=== PATIENT | male | born 1990 | race Caucasian/White ===

== ENCOUNTER 2019-02-04 04:52 | Inpatient (IN) ==
[2019-02-04] MEDS ORDERED: traMADol 50 MG TABLET PO PRN (05:06)
[2019-02-04] MEDS ORDERED: Naloxone 0.4 MG/ML INJ IVP PRN (05:06)
[2019-02-04] MEDS ORDERED: Isovue-370 500 ML BOTTLE IVP ONE (05:24)
[2019-02-04 05:47] LABS: Basophils # 0.1 K/mcL (0.0-0.2); Basophils % 0.4 %; Eosinophils % 0.1 %; Hematocrit 32.9 % (37.5-50.1); Hemoglobin 10.3 g/dL (12.9-16.9); Immature Granulocytes % 0.6 % (0-4); Lymphocytes # 1.1 K/mcL (0.6-4.6); Lymphocytes % 9.5 %; Mean Corpuscular HGB Conc 31.3 g/dL (31.6-35.5); Mean Corpuscular Hemoglobin 25.4 pg (28.0-33.3); Mean Platelet Volume 9.7 fL (9.4-12.4); Monocytes # 0.7 K/mcL (0.0-1.3); Monocytes % 5.9 %; Neutrophils # 9.9 K/mcL (1.6-8.9); Platelet Count 319 K/mcL (140-400); Red Blood Count 4.06 M/mcL (4.19-5.50); Red Cell Distribution Width 14.6 % (11.5-14.5); Segmented Neutrophils % 83.5 %; White Blood Count 11.8 K/mcL (4.3-11.1)
[2019-02-04 05:54] LABS: INR 1.4; Prothrombin Time 15.7 Seconds (9.4-12.1)
[2019-02-04] MEDS: 0.9 % Sodium Chloride 1,000 ML IVC SCH ×2 (05:54→08:55)
[2019-02-04 05:56] LABS: Activated Partial Thrombo Time 36.4 Seconds (26.0-36.0)
[2019-02-04] MEDS: *HR* Heparin 5,000 UNIT/ML VIAL SQ SCH ×2 (05:56→16:25)
[2019-02-04 06:07] LABS: Alanine Aminotransferase 7 Units/L (7-52); Albumin 3.4 g/dL (3.5-5.7); Albumin/Globulin Ratio 0.9 (1.1-2.2); Alkaline Phosphatase 99 Units/L (34-104); Aspartate Amino Transferase 9 Units/L (13-39); BUN/Creatinine Ratio 21 (6-26); Bilirubin,Direct 0.1 mg/dL (0.0-0.2); Bilirubin,Indirect 0.2 mg/dL (0.0-1.2); Bilirubin,Total 0.3 mg/dL (0.3-1.0); Blood Urea Nitrogen 17 mg/dL (6-20); Calcium 8.3 mg/dL (8.6-10.3); Carbon Dioxide 22 mEq/L (23-29); Chloride 103 mEq/L (98-107); Globulin 3.7 g/dL (2.4-3.5); Glucose 128 mg/dL (70-105); Magnesium 1.7 mg/dL (1.6-2.6); Osmolality,Calculated 283 (280-300); Potassium 3.2 mEq/L (3.5-5.1); Sodium 135 mEq/L (136-145); Total Protein 7.1 g/dL (6.4-8.9); Troponin I < 0.03 ng/mL (< 0.04); eGFR For African Americans > 60 (> 60); eGFR For Non-African Americans > 60 (> 60)
[2019-02-04] MEDS ORDERED: Potassium Chloride Elixir 20 MEQ/15 ML UDC PO ONE (06:14)
--- NOTE | 2019-02-04 06:52 | Internal Med History&Physical ---
Date of Encounter: 02/04/19 Time of Encounter: 06:51 Internal Medicine - H&P: HPI Chief complaint: fever Admitted From: Home Plans for Post Hospital Care: Home History of present illness: Bryson Thomas is a 28 year old man with substance use disorder who reportedly had a bout of bacterial endocarditis 1 year ago complicated with pneumonic consolidations, treated at [facility] and subsequently discharged to a fpc for completion of his antibiotic therapy. He continues to use illicit intravenous drugs stating that his last use was about 5 or 6 days ago but in the last 2 days has been feeling feverish with heaviness in his chest and pain with deep breathing localizing it to the center of his chest. He complains of generalized body aches, fatigue, chills and subjective fever. He went to the emergency room at [facility] where he was reportedly febrile but and documentation seen to have had a temperature of 100.1 degrees. He was seen to have a leukocyte count of 13, elevated CRP at 12.4 and an initial lactate of 2.5. A reflex 3 hour repeat was 1.8. Chest x-ray revealed no acute anomalies and his EKG showed sinus tachycardia. Urine drug screen was positive for amphetamines although he tells me he only injects heroin. He was transferred to our facility because the patient wished to stay close but was denied admission at the referring hospital in case he needed an infectious disease consult. He was given a dose of vancomycin. On arrival here he is in no acute distress. Vitals: Reviewed General: Well-developed young man sitting up in bed in no acute distress. Skin: Warm and dry. Scabbed ulceration noted on the dorsal aspect of the right hand stemming from a recent abscess. HEENT: Moist mucous membranes. No conjunctivae pallor. Neck: No lymphadenopathy. No JVD. No carotid bruits. No palpable thyroid. Chest: Normal thoracic expansion. Normal breath sounds. Clear to auscultation. Heart: Normal S1 & S2; tachycardic. Slight murmur detected at the apex. Abdomen: Non-distended, soft and non-tender to palpation. No peritoneal reaction. Extremities: No clubbing, cyanosis or edema. No calf tenderness. Normal distal pulses. Neurological: Awake, alert and oriented to person, place and time. No focal deficits. Psych: Affect appropriate. Assessment/Plan 1. Fever: Not technically corroborated by healthcare staff. However given the associated constitutional signs and symptoms, leukocytosis, lactic acid elevation and being an IVDU, there is high concern for a bacteremic state and therefore this needs to be ruled out. Will get 2 sets of blood cultures here and will continue vancomycin empirically until proven otherwise. Will also have him undergo an echo evaluation given his prior history of infective endocarditis and concern for a current state of illness. 2. Chest pain: Non-specific. Will order a contrast-enhanced CT to rule out septic pulmonary emboli and pneumonic consolidations. 3. Malaise: While it may stem from an infectious process, a differential to consider is opiate withdrawal since he says he has not used in 6 days and the symptoms accompanied by abdominal cramping and diarrhea started in the last 48 hours. Will continue to monitor his clinical evolution. 4. Substance use disorder: 5 minutes were spent counseling and educating the patient on this habit. director dental services and resources were made available. Past Med Surg Social Fam HX - Past Medical History Medical history: IV drug use Additional medical history: Endocarditis - Past Surgical History Additional surgical history: Knee, ankle, shoulder surgery - Social History Smoking Status: Current every day smoker Packs per day: 2 Smokeless Tobacco Status: No Alcohol use: none Drug use: IV Drug Use Internal Medicine - H&P: Meds Allergy/AdvReac Type Severity Reaction Status Date / Time No Known Allergies Allergy Verified 02/04/19 05:42 All Systems PM: A 10-system review of systems was performed and is negative for pertinent findings except as documented above in the HPI. Family history reviewed and found non-contributory. - Constitutional Vitals: Temp Pulse Resp BP Pulse Ox 99.2 F 105 16 123/74 98 02/04/19 05:24 02/04/19 05:24 02/04/19 05:24 02/04/19 05:24 02/04/19 05:24 Exam: . Internal Med - H&P Results - Labs CBC & Chem 7: 02/04/19 05:29 02/04/19 05:29 Labs: Short CBC 02/04/19 Range/Units 05:29 WBC 11.8 H (4.3-11.1) K/mcL Hgb 10.3 L (12.9-16.9) g/dL Hct 32.9 L (37.5-50.1) % Plt Count 319 (140-400) K/mcL Neutrophils # 9.9 H (1.6-8.9) K/mcL BMP 02/04/19 05:29 Sodium 135 L Potassium 3.2 L Chloride 103 Carbon Dioxide 22 L BUN 17 Creatinine 0.82 Glucose 128 H Calcium 8.3 L Cardiac Enzymes 02/04/19 Range/Units 05:29 Troponin I < 0.03 (< 0.04) ng/mL Liver Function 02/04/19 Range/Units 05:29 Total Bilirubin 0.3 (0.3-1.0) mg/dL Direct Bilirubin 0.1 (0.0-0.2) mg/dL AST 9 L (13-39) Units/L ALT 7 (7-52) Units/L Alkaline Phosphatase 99 (34-104) Units/L Albumin 3.4 L (3.5-5.7) g/dL - Time Spent With Patient Total time spent is greater than 50% in coordination of care (as documented) at patient's floor/unit and/or counseling patient:
[2019-02-04] MEDS ORDERED: Vancomycin 0 MG in 0.9 % Sodium Chloride 250 ML IVPB SCH (09:00)
[2019-02-04] MEDS ORDERED: cefTRIAXone 2,000 MG in Water for inj. (sterile) 20 ML IVP SCH (10:00)
--- NOTE | 2019-02-04 11:59 | Infectious Disease Consult ---
Infectious Disease-Consult - Encounter Date/Time Date of Encounter: 02/04/19 Time of Encounter: 11:55 - Data of Consult Patient: new to practice Reason for consult: "TR endocarditis, positive blood cultures from outside hosp gm+ cocci, Hx IVDU" Consult date: 02/04/19 Requesting Physician: Marta Celaya MD Primary Care Provider: PCP NONE - HPI HPI: Mr. Thomas is a 28-year-old male with past medical history of hepatitis C, polysubstance abuse, and endocarditis. The patient was admitted to the hospital 02/04/19 for fever. We are consulted 02/04/19 for further workup and treatment recommendations for endocarditis and bacteremia. Briefly, the patient is a 28 year old male with a past medical history as stated above. The patient presented to [facility] with complaints of fevers, chest pain, and shortness of breath. Upon arrival to the ER, he had a low-grade temp and was tachycardic. Leukocytosis and lactic acidosis. Blood cultures were obtained 2 sets. Chest x-ray that was negative. His urine drug screen was positive for amphetamines. He was started on IV vancomycin and transferred here for further evaluation. Since admission, the patient has had some tachycardia and low-grade fevers. His leukocytosis is improved. Blood cultures drawn at [facility] are +2 out of 2 sets for gram-positive cocci. He did transthoracic echocardiogram that showed an EF of 60-65% with an oscillating mobile echodensity measuring 1.2 cm x 0.35 cm on the septal leaflet of the tricuspid valve consistent with a vegetation with mild tricuspid regurgitation. Trivial pericardial effusion. He is CTA of the chest that showed no evidence of pulmonary embolism or acute aortic disease. There are multiple pulmonary nodules which have an inflammatory appearance likely related to septic emboli. A partly cavitated mass seen in the right upper lobe measuring 3.1 x 3.2 cm were also noted. Labs today reveal an improved white blood cell count. His lactic acid and LFTs are normal. Troponin was negative. Kidney function is normal. Repeat blood cultures drawn 02/04/19 are pending 2 sets. Currently, he is on vancomycin and Rocephin. We have asked to evaluate and make further recommendations. During my exam today, the patient endorsed a history as stated above. He states for the past 2 days he has had substernal reproducible chest pain, shortness of breath, and cough. He endorses a history of fevers with a MAXIMUM TEMPERATURE of 104 at home. He states he feels generally unwell with fatigue and malaise. Denies any chills or rigors. Reports a diffuse headache at this time, but denies any blurred vision or neck stiffness. He denies nausea, vomiting, or constipation. Reports diarrhea has been ongoing for a couple of days. Denies abdominal pain or urinary complaints. Denies penile discharge or history of sexually transmitted diseases. Denies any back or flank pain. Denies any particular joint pain, redness, or swelling. Denies oral thrush or skin rashes. The patient lives at home with his family. He does not work outside the home. He smokes 2 packs of cigarettes per day. Reports every other day use of IV heroin. Denies chronic alcohol use. Denies recent travel. Reports that he has hepatitis C positive. - ROS Review of Systems: All systems reviewed and no additional remarkable complaints except as stated. - Results CBC & Chem 7: 02/06/19 09:25 02/06/19 09:25 - Exam Vitals: Temp Pulse Resp BP Pulse Ox 98.8 F 80 16 145/90 99 02/04/19 10:52 02/04/19 10:52 02/04/19 10:52 02/04/19 10:52 02/04/19 10:52 Exam: Head: Atraumatic, normal inspection, normocephalic. Eye: EOMI, PERRLA, no scleral icterus noted. No subconjunctival hemorrhage noted. ENT: Mucous membranes moist. No odontogenic infection noted. Neck: Normal inspection, no meningismus. Respiratory: Clear to auscultation. No rales, respiratory distress, rhonchi, or wheezes noted. Cardiovascular: Regular rate and rhythm, S1 and S2 audible. No murmurs, rubs, or gallops. GI: Soft, nondistended, normal bowel sounds. Nontender. Extremities:No joint swelling, pedal edema, or tenderness noted. Back: Normal inspection. No vertebral tenderness noted. Neurological: Alert, oriented 3, no focal deficits. Psychiatric: normal affect, normal mood. Skin: Dry, intact, warm. Normal color. No rashes. No endocarditis stigmata noted. No Known Home Drugs 02/04/19 [History] Allergy/AdvReac Type Severity Reaction Status Date / Time No Known Allergies Allergy Verified 02/04/19 08:58 - Assessment and Plan (1) Sepsis Current Visit: Yes Status: Acute The patient had 3 sepsis criteria with lactic acidosis on admission. Likely secondary to bacteremia and endocarditis. Improved. White blood cell count trending down. Tachycardia and lactic acidosis resolved. Afebrile overnight. Blood cultures drawn at outside hospital are +2 out of 2 sets for gram-positive cocci. Repeat blood cultures drawn 02/04/19 are pending 2 sets. Qualifiers: Sepsis type: sepsis due to unspecified organism Sepsis acute organ dysfunction status: with acute organ dysfunction Severe sepsis acute organ dysfunction type: unspecified Severe sepsis shock status: without septic shock Qualified Code(s): A41.9 - Sepsis, unspecified organism; R65.20 - Severe sepsis without septic shock SNOMED Code(s): 99389613 (2) Bacteremia Current Visit: Yes Status: Acute Causative organism: Unclear. Blood cultures from outside hospital are +2 sets for gram-positive cocci. Repeat blood cultures from 02/04/19 are pending 2 sets. Source: IV drug use. 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 No endocarditis stigmata noted on exam. Transthoracic echocardiogram shows a oscillating mobile echodensity on the tricuspid valve. The patient has 2 major and one minor modified Mcminn criteria. Currently on vancomycin and Rocephin. SNOMED Code(s): 1304440 (3) Endocarditis Current Visit: Yes Status: Acute Location: Tricuspid valve. Noted on the transthoracic echo. Blood cultures are positive, however, the patient does have a history of endocarditis so it is unclear if this is an old infection that is previously been treated for a new endocarditis. No endocarditis stigmata noted on exam. Currently on vancomycin and Rocephin. Qualifiers: Endocarditis type: infective Infective endocarditis organism: bacterial Chronicity: unspecified Qualified Code(s): I33.0 - Acute and subacute infective endocarditis SNOMED Code(s): 51942208 (4) Cavitary lesion of lung Current Visit: Yes Status: Acute CT of the chest shows multiple pulmonary nodules likely related to septic emboli and a partly cavitated mass in the right upper lobe. Likely secondary to septic emboli. The patient has been in alf previously, so TB is on the differential, but low on the differential given that he has no hemoptysis, night sweats, or weight lo ss. Currently on vancomycin and Rocephin. SNOMED Code(s): 886867394 (5) Hepatitis C Current Visit: Yes Status: Acute Likely secondary to IV drug use. Outpatient GI referral. Qualifiers: Viral hepatitis chronicity: chronic Hepatic coma status: without hepatic coma Qualified Code(s): B18.2 - Chronic viral hepatitis C SNOMED Code(s): 62152001 (6) IVDU (intravenous drug user) Current Visit: Yes Status: Acute Reports frequent use of IV heroin with last use 5 days ago. Known hepatitis C positive. We will check hepatitis B and HIV serologies. Withdrawal management per the primary team. SNOMED Code(s): 617305227 - Recommendations Recommendations: Await final ID and sensitivities on blood cultures. Await repeat blood cultures to finalize. Check rheumatoid factor. Check HIV and Hepatitis B serologies. Get records from [place] regarding the patient's previous treatment for endocarditis. Withdrawal management and NRT per the primary team. Continue vancomycin IV. Pharmacy to dose. Goal trough approximately 15. Continue Rocephin 2 grams, but increase to Q12H. Duration of treatment is on the clinical picture. Monitor renal function for drug toxicity and is just antibiotics. Past Med Surg Social Fam HX - Past Medical History Attestation: Yes The following information was validated with the patient. Source: patient, old records reviewed, nursing notes reviewed Medical history: hepatitis (C), IV drug use Additional medical history: Endocarditis - Past Surgical History Additional surgical history: Knee, ankle, shoulder surgery - Social History Smoking Status: Current every day smoker Packs per day: 2 Smokeless Tobacco Status: No Alcohol use: none Drug use: IV Drug Use Occupational status: unemployed Current living situation: Home, With Family Activity Level: Independent ambulation Recent Out of Country Travel Within the Last 8 Weeks: No Exposure or Possible Exposure to Illness During Travel: No Consult Discharge Plan - Plan Referrals: NONE,PCP [Primary Care Provider] - - Attending Attestation I have personally performed a face to face evaluation on this patient. I have reviewed and agree with the care plan. History and Exam by me shows: This is an addendum to original report dictated by Alejandra Roberson CNP. Please refer to Alejandra's note for full details. Agree with above HPI, ROS and PE findings. Assessment and Plan: 1.Sepsis 2.Bacteremia 3.Endocarditis Tricuspid valve 4.history of endocarditis 1 year ago, treated fully with 6 weeks of IV antiibiotics. Patient does not recall which one 5.Cavitary lung lesions 6. Hepatitis C Recommendations: Await final ID and sensitivities on blood cultures. Await repeat blood cultures to finalize. Check rheumatoid factor. Check HIV and Hepatitis B serologies. Get records from [place] regarding the patient's previous treatment for endocarditis. Withdrawal management and NRT per the primary team. Continue vancomycin IV. Pharmacy to dose. Goal trough approximately 15. Continue Rocephin 2 grams, but increase to Q12H. Duration of treatment is on the clinical picture. Monitor renal function for drug toxicity and is just antibiotics.
[2019-02-04 12:56] LABS: Amphetamine Screen,Urine Positive ng/mL (Cutoff=1000); Barbiturate Screen,Urine Negative ng/mL (Cutoff=200); Benzodiazepines Screen,Urine Negative ng/mL (Cutoff=200); Cannabinoid Screen,Urine Negative ng/mL (Cutoff = 50); Cocaine Screen,Urine Negative ng/mL (Cutoff= 300); Opiate Screen,Urine Negative ng/mL (Cutoff=300); Phencyclidine Screen,Urine Negative ng/mL (Cutoff=25)
[2019-02-04 13:59] LABS: Rheumatoid Factor 22 IU/mL (Less than 14)
[2019-02-04] MEDS: Acetaminophen 325 MG TABLET PO PRN ×2 (14:14→20:01)
[2019-02-04 15:01] LABS: Hepatitis B Surface Antibody 117.25 mIU/mL
[2019-02-04 15:12] LABS: Hepatitis B Surface Antigen Nonreactive (Nonreactive)
--- NOTE | 2019-02-04 15:27 | Internal Med Progress Note ---
Hospitalist Progress Note - Encounter Date of Encounter: 02/04/19 Time of Encounter: 14:00 - Subjective Interval History: Mr William endorses history of endocarditis a year ago which was attributed to his IV drug use. He admits to current active user of heroin. He is complaining of headaches per discussion with the adult educator patient does have tricuspid valve vegetation on his transthoracic echocardiogram. Discussed case also with the ID specialist they would obtain records from [facility] from his prior hospitalization. Per his nurse patient appears to be going through heroine withdrawal. GEN: reports fever, chills or malaise HEENT: reports headache blurriness, denies dysphagia RESP: reports SOB denies cough CV: Denies chest pain or palpitations GI: Denies Nausea, vomiting, diarrhea or constipation Reviewed current in hospital medications with modifications see orders Reviewed Routine labs - Exam Vitals: Temp Pulse Resp BP Pulse Ox 101.4 F H 107 18 137/89 95 02/04/19 14:24 02/04/19 14:24 02/04/19 14:24 02/04/19 14:24 02/04/19 14:24 Exam: GEN: Distress male, A&O x 3, appears acutely ill SKIN: Hoffman warm acyanotic not jaundice, multiple healing skin abrasion noted in his right upper extremity HEART: RRR with tachycardic, grade 2/6 systolic murmur appreciated LUNGS: Diminished but appears CTA no wheeze or crackles, overall non labored ABDOMEN; Soft, non tender or distended, BS x 4 normactive EXT: No LE edema, Pedal pulses 1+, radial pulses 2+ PSYCH: Mood and affect is appropriate - Assessment and Plan (1) Endocarditis Current Visit: Yes Status: Acute Assessment and Plan: . TTE tricuspid valve vegetation noted per discussion with the adult educator we appreciate the input does not seem to indicate need for surgical intervention, appreciate ID specialist input appear to have been committed septic emboli to his lungs, he is complaining of worsening headache as such CT of the head is reported to rule out septic emboli to the brain in need of surgical intervention. On vancomycin and Rocephin. Patient does endorse history of endocarditis a year ago treated at [facility] will obtain records (2) Sepsis Current Visit: Yes Status: Acute Assessment and Plan: Secondary to endocarditis per information obtained from the outside hospital pat ient has gram-positive cocci see plan above for endocarditis (3) Headache Current Visit: Yes Status: Acute Assessment and Plan: Given septic emboli to the lungs concern about septic emboli to the brain CT head is pending to rule out and if indicated for surgical intervention (4) Anemia Current Visit: Yes Status: Acute Assessment and Plan: Appears microcytic we will obtain studies hemoglobin 10.3 (5) Hypokalemia Current Visit: Yes Status: Acute Assessment and Plan: We will supplement orally (6) Polysubstance abuse Current Visit: Yes Status: Acute Assessment and Plan: Reports IV drug use to heroin urine toxicology positive for amphenermines, this places patient at increased risk for outpatient treatment for his endocarditis with IV antibiotics will need placement to ECF. he is currently going through withdrawal will treat with oxycodone 5 mg every 6 so is most likely to stay to get treatment for his endocarditis rather than him leaving AMA which likely will increase overall health care cost burden (7) Cavitary lesion of lung Current Visit: Yes Status: Acute Assessment and Plan: in setting of septic emboli, we will need a repeat CT of the chest to rule out any other pulmonary malignancy in 6 months DVT Prophylaxis: heparin sq - Time Spent with Patient Total time spent is greater than 50% in coordination of care (as documented) at patient's floor/unit and/or counseling patient: Internal Medicine: Result - Labs CBC & Chem 7: 02/04/19 05:29 02/04/19 05:29 Labs: Short CBC 02/04/19 Range/Units 05:29 WBC 11.8 H (4.3-11.1) K/mcL Hgb 10.3 L (12.9-16.9) g/dL Hct 32.9 L (37.5-50.1) % Plt Count 319 (140-400) K/mcL Neutrophils # 9.9 H (1.6-8.9) K/mcL BMP 02/04/19 05:29 Sodium 135 L Potassium 3.2 L Chloride 103 Carbon Dioxide 22 L BUN 17 Creatinine 0.82 Glucose 128 H Calcium 8.3 L Cardiac Enzymes 02/04/19 Range/Units 05:29 Troponin I < 0.03 (< 0.04) ng/mL Liver Function 02/04/19 Range/Units 05:29 Total Bilirubin 0.3 (0.3-1.0) mg/dL Direct Bilirubin 0.1 (0.0-0.2) mg/dL AST 9 L (13-39) Units/L ALT 7 (7-52) Units/L Alkaline Phosphatase 99 (34-104) Units/L Albumin 3.4 L (3.5-5.7) g/dL - ABG Interpretation ABG results: PT/INR, D-dimer PT 15.7 Seconds (9.4-12.1) H 02/04/19 05:29 - Impressions Impressions Echocardiogram 02/04/19 05:02 Impressions: LVEF 60-65%. Normal LV chamber size, wall thickness and function. Normal left ventricular diastolic function. Normal right ventricular structure and function. Oscillating, mobile echodensity measuring 1.2 cm x 0.35 cm on the septal leaflet of the tricuspid valve consistent with a vegetation. Mild tricuspid regurgitation. No pulmonary hypertension. There is a trivial pericardial effusion present. Results discussed with covering physician, Dr. Solis. Left Ventricular Wall Motion: Rest Echo Findings All wall segments showed normal motion. Findings: Study Quality * Technically adequate exam. ECG Findings * Normal sinus rhythm. Left Ventricle * LVEF 60-65%. * Normal LV chamber size, wall thickness and function. * Normal left ventricular diastolic function. Right Ventricle * Normal right ventricular structure and function. Left Atrium * Normal left atrial size. Right Atrium * Normal right atrial size. Interatrial Septum * No evidence of a PFO by color Doppler. Aortic Valve * Trileaflet aortic valve with normal function. * No aortic regurgitation. * No aortic stenosis. Mitral Valve * Normal mitral valve structure and function. * No mitral regurgitation. * No mitral stenosis. Tricuspid Valve * Oscillating, mobile echodensity measuring 1.2 cm x 0.35 cm on the septal leaflet of the tricuspid valve consistent with a vegetation. * Mild tricuspid regurgitation. * No pulmonary hypertension. Pulmonic Valve * Normal pulmonic valve structure and function. * Trace pulmonic regurgitation. Aorta * Normally sized aortic root. Pericardium * There is a trivial pericardial effusion present. IVC * Normal IVC dimensions and inspiratory collapse. Pulmonary Artery * Normal visualized portions of the main pulmonary artery. Chest CTA 02/04/19 05:24 IMPRESSION: No evidence of pulmonary embolism or acute aortic disease. Multiple pulmonary nodules which have an inflammatory appearance likely related to septic emboli. A partly cavitated mass seen in the right upper lobe measuring 3.1 x 3.2 cm. RECOMMENDATIONS: Echocardiogram to evaluate for endocarditis. D/ / 02/04/2019 08:38:16 Gauri Blancas MD / Jennifer Starks Interpreting Provider: Gauri Blancas MD Consult Discharge Plan - Plan Referrals: NONE,PCP [Primary Care Provider] - (1) Endocarditis Qualifiers: Endocarditis type: infective Infective endocarditis organism: bacterial Chronicity: unspecified Qualified Code(s): I33.0 - Acute and subacute infective endocarditis (2) Sepsis Qualifiers: Sepsis type: sepsis due to unspecified organism Sepsis acute organ dysfunction status: with acute organ dysfunction Severe sepsis acute organ dysfunction type: unspecified Severe sepsis shock status: without septic shock Qualified Code(s): A41.9 - Sepsis, unspecified organism; R65.20 - Severe sepsis without septic shock (3) Headache Qualifiers: Headache type: unspecified Headache chronicity pattern: acute headache Qualified Code(s): R51 - Headache (4) Anemia Qualifiers: Anemia type: unspecified type Qualified Code(s): D64.9 - Anemia, unspecified
[2019-02-04 15:41] LABS: HIV-1&2 Antibody & p24 Ag Nonreactive (Nonreactive)
[2019-02-04] MEDS ORDERED: Piperacillin/Tazobactam 3.375 GM in 0.9 % Sodium Chloride Mini Bag 100 ML IVPB SCH (16:00)
[2019-02-04] MEDS: cefTRIAXone 2,000 MG in 0.9 % Sodium Chloride Mini Bag 100 ML IVPB SCH (16:25)
[2019-02-04 20:12] LABS: Acinetobacter baumannii by PCR Not Detected (Not Detect); Candida albicans by PCR Not Detected (Not Detect); Candida glabrata by PCR Not Detected (Not Detect); Candida krusei by PCR Not Detected (Not Detect); Candida parapsilosis by PCR Not Detected (Not Detect); Candida tropicalis by PCR Not Detected (Not Detect); Enterobacter cloacae Cmplx PCR Not Detected (Not Detect); Enterobacteriaceae by PCR Not Detected (Not Detect); Enterococcus by PCR Not Detected (Not Detect); Escherichia coli by PCR Not Detected (Not Detect); Klebsiella oxytoca by PCR Not Detected (Not Detect); Klebsiella pneumoniae by PCR Not Detected (Not Detect); Proteus by PCR Not Detected (Not Detect); Pseudomonas aeruginosa by PCR Not Detected (Not Detect); Serratia marcescens by PCR Not Detected (Not Detect); Staphylococcus aureus by PCR DETECTED (Not Detect); Streptococcus agalactiae(B)PCR Not Detected (Not Detect); Streptococcus by PCR Not Detected (Not Detect); Streptococcus pneumoniae PCR Not Detected (Not Detect); Streptococcus pyogenes (A) PCR Not Detected (Not Detect); blaKPC Carbapenem-Resist Gene Not Detected (Not Detect); mecA Methicillin-Resist Gene Not Detected (Not Detect); vanA/B Vancomycin-Resist Genes Not Detected (Not Detect)
[2019-02-04] MEDS ORDERED: traMADol 50 MG TABLET PO ONE (22:08)
[2019-02-05] MEDS: cefTRIAXone 2,000 MG in 0.9 % Sodium Chloride Mini Bag 100 ML IVPB SCH ×2 (05:45→18:09)
[2019-02-05] MEDS: *HR* Heparin 5,000 UNIT/ML VIAL SQ SCH ×2 (05:45→18:09)
[2019-02-05] MEDS: Acetaminophen 325 MG TABLET PO PRN ×3 (06:00→18:08)
[2019-02-05 07:15] LABS: Basophils % 0.3 %; Eosinophils # 0.1 K/mcL (0.0-0.6); Eosinophils % 0.4 %; Hematocrit 31.8 % (37.5-50.1); Immature Granulocytes % 0.4 % (0-4); Lymphocytes # 1.3 K/mcL (0.6-4.6); Lymphocytes % 11.3 %; Mean Corpuscular HGB Conc 31.4 g/dL (31.6-35.5); Mean Corpuscular Hemoglobin 24.9 pg (28.0-33.3); Mean Corpuscular Volume 79.1 fL (83.0-100.0); Mean Platelet Volume 10.3 fL (9.4-12.4); Monocytes # 0.8 K/mcL (0.0-1.3); Monocytes % 6.5 %; Neutrophils # 9.4 K/mcL (1.6-8.9); Platelet Count 344 K/mcL (140-400); Red Blood Count 4.02 M/mcL (4.19-5.50); Red Cell Distribution Width 14.2 % (11.5-14.5); Segmented Neutrophils % 81.1 %; White Blood Count 11.6 K/mcL (4.3-11.1)
[2019-02-05 07:21] LABS: BUN/Creatinine Ratio 11 (6-26); Blood Urea Nitrogen 7 mg/dL (6-20); Calcium 8.8 mg/dL (8.6-10.3); Carbon Dioxide 23 mEq/L (23-29); Chloride 98 mEq/L (98-107); Glucose 106 mg/dL (70-105); Magnesium 1.7 mg/dL (1.6-2.6); Osmolality,Calculated 270 (280-300); Potassium 3.6 mEq/L (3.5-5.1); Sodium 131 mEq/L (136-145); eGFR For African Americans > 60 (> 60); eGFR For Non-African Americans > 60 (> 60)
[2019-02-05 07:41] LABS: Ferritin 99 ng/mL (20-250); Iron < 10 mcg/dL (65-175); Transferrin 245 mg/dL (203-362)
[2019-02-05 07:42] LABS: Folate 6.3 ng/mL (3.0-16.0)
[2019-02-05] MEDS: Cyanocobalamin (B-12) 1,000 MCG TABLET PO SCH (08:22)
[2019-02-05] MEDS ORDERED: cefTRIAXone 2,000 MG in 0.9 % Sodium Chloride Mini Bag 100 ML IVPB SCH (10:00)
--- NOTE | 2019-02-05 12:58 | Internal Med Progress Note ---
Hospitalist Progress Note - Encounter Date of Encounter: 02/05/19 Time of Encounter: 11:45 - Subjective Interval History: Mr Thomas reports feeling much better compared to yesterday 2 out of 2 blood culture reveals staph aureus GEN: Reports improved fever, chills or malaise HEENT: Denies headache blurriness, or dysphagia RESP: Admits to SOB or cough CV: Denies chest pain or palpitations GI: Denies Nausea, vomiting, diarrhea or constipation Reviewed current in hospital medications with modifications see orders Reviewed Routine labs - Exam Vitals: Temp Pulse Resp BP Pulse Ox 98.3 F 78 17 142/77 95 02/05/19 11:11 02/05/19 11:11 02/05/19 11:11 02/05/19 11:11 02/05/19 11:11 Exam: GEN: NAD, A&O x 3, pleasant and conversant SKIN: [place] warm acyanotic not jaundice, multiple healing skin abrasion noted in his right upper extremity HEART: RRR with tachycardic, grade 2/6 systolic murmur appreciated LUNGS: Diminished but appears CTA no wheeze or crackles, overall non labored ABDOMEN; Soft, non tender or distended, BS x 4 normactive EXT: No LE edema, Pedal pulses 1+, radial pulses 2+ PSYCH: Mood and affect is appropriate - Assessment and Plan (1) Endocarditis Current Visit: Yes Status: Acute Assessment and Plan: 2 out of 2 blood cultures positive for staph aureus, TTE tricuspid valve vegetation noted per discussion with the picker and sorter load and unload we appreciate the input does not seem to indicate need for surgical intervention, appreciate ID specialist input appear to have been committed septic emboli to his lungs, he is complaining of worsening headache as such CT of the head is reported to rule out septic emboli to the brain in need of surgical intervention. On vancomycin and Rocephin. Patient does endorse history of endocarditis a year ago treated at [facility] will obtain records (2) Sepsis Current Visit: Yes Status: Acute Assessment and Plan: Improvement, Secondary to endocarditis per information obtained from the outside hospital patient has gram-positive cocci see plan above for endocarditis (3) Headache Current Visit: Yes Status: Acute Assessment and Plan: Given septic emboli to the lungs concern about septic emboli to the brain CT head was ordered and was negative, headache much improved today (4) Anemia Current Visit: Yes Status: Acute Assessment and Plan: Appears microcytic we will obtain studies hemoglobin 10.3, ferritin within normal limits fluids within normal limits however B12 is low supplement orally hemoglobin stable at 10 (5) Hypokalemia Current Visit: Yes Status: Acute Assessment and Plan: Resolved potassium 3.6 (6) Polysubstance abuse Current Visit: Yes Status: Acute Assessment and Plan: Reports IV drug use to heroin urine toxicology positive for amphenermines, this places patient at increased risk for outpatient treatment for his endocarditis with IV antibiotics will need placement to ECF. he is currently going through withdrawal will treat with oxycodone 5 mg every 6 so is most likely to stay to get treatment for his endocarditis rather than him leaving AMA which likely will increase overall health care cost burden (7) Cavitary lesion of lung Current Visit: Yes Status: Acute Assessment and Plan: in setting of septic emboli, we will need a repeat CT of the chest to rule out any other pulmonary malignancy in 6 months (8) Hyponatremia Current Visit: Yes Status: Acute Assessment and Plan: In the setting of sepsis may be related to SIADH acutely he is otherwise asymptomatic sodium is 131. Being septic cannot fluid restrict patient will mo nitor BMP tomorrow. Likely due to his poor intake he does not appear volume overload we will check TSH tomorrow for euvolemic hyponatremia DVT Prophylaxis: heparin sq - Time Spent with Patient Total time spent is greater than 50% in coordination of care (as documented) at patient's floor/unit and/or counseling patient: Internal Medicine: Result - Labs CBC & Chem 7: 02/05/19 06:10 02/05/19 06:10 Labs: Short CBC 02/05/19 Range/Units 06:10 WBC 11.6 H (4.3-11.1) K/mcL Hgb 10.0 L (12.9-16.9) g/dL Hct 31.8 L (37.5-50.1) % Plt Count 344 (140-400) K/mcL Neutrophils # 9.4 H (1.6-8.9) K/mcL BMP 02/05/19 06:10 Sodium 131 L Potassium 3.6 Chloride 98 Carbon Dioxide 23 BUN 7 Creatinine 0.64 L Glucose 106 H Calcium 8.8 - ABG Interpretation ABG results: PT/INR, D-dimer PT 15.7 Seconds (9.4-12.1) H 02/04/19 05:29 - Impressions Impressions Head CT 02/04/19 15:10 IMPRESSION: No acute intracranial abnormality. Acute sinusitis, with greatest involvement of the sphenoid sinus locules. D/ / Bronson Cortes MD / Bronson Cortes MD Interpreting Provider: Bronson Cortes MD Consult Discharge Plan - Plan Referrals: NONE,PCP [Primary Care Provider] - (1) Endocarditis Qualifiers: Endocarditis type: infective Infective endocarditis organism: bacterial Chronicity: unspecified Qualified Code(s): I33.0 - Acute and subacute infective endocarditis (2) Sepsis Qualifiers: Sepsis type: sepsis due to unspecified organism Sepsis acute organ dysfunction status: with acute organ dysfunction Severe sepsis acute organ dysfunction type: unspecified Severe sepsis shock status: without septic shock Qualified Code(s): A41.9 - Sepsis, unspecified organism; R65.20 - Severe sepsis without septic shock (3) Headache Qualifiers: Headache type: unspecified Headache chronicity pattern: acute headache Qualified Code(s): R51 - Headache (4) Anemia Qualifiers: Anemia type: B12 deficiency Vitamin B12 deficiency anemia type: other B12 deficiency Qualified Code(s): D51.8 - Other vitamin B12 deficiency anemias
[2019-02-06] MEDS: *HR* Heparin 5,000 UNIT/ML VIAL SQ SCH ×3 (04:47→18:07)
[2019-02-06] MEDS: Acetaminophen 325 MG TABLET PO PRN ×3 (04:47→18:07)
[2019-02-06] MEDS: cefTRIAXone 2,000 MG in 0.9 % Sodium Chloride Mini Bag 100 ML IVPB SCH ×2 (05:56→18:06)
[2019-02-06] MEDS: Cyanocobalamin (B-12) 1,000 MCG TABLET PO SCH (08:59)
[2019-02-06 09:50] LABS: Basophils % 0.3 %; Eosinophils # 0.2 K/mcL (0.0-0.6); Eosinophils % 1.2 %; Hematocrit 35.7 % (37.5-50.1); Immature Granulocytes % 0.5 % (0-4); Lymphocytes % 15.7 %; Mean Corpuscular HGB Conc 30.8 g/dL (31.6-35.5); Mean Corpuscular Hemoglobin 25.3 pg (28.0-33.3); Mean Corpuscular Volume 82.1 fL (83.0-100.0); Mean Platelet Volume 10.3 fL (9.4-12.4); Monocytes # 0.8 K/mcL (0.0-1.3); Monocytes % 6.5 %; Neutrophils # 9.6 K/mcL (1.6-8.9); Platelet Count 458 K/mcL (140-400); Red Blood Count 4.35 M/mcL (4.19-5.50); Red Cell Distribution Width 14.4 % (11.5-14.5); Segmented Neutrophils % 75.8 %; White Blood Count 12.7 K/mcL (4.3-11.1)
[2019-02-06 10:12] LABS: BUN/Creatinine Ratio 18 (6-26); Blood Urea Nitrogen 12 mg/dL (6-20); Carbon Dioxide 27 mEq/L (23-29); Chloride 101 mEq/L (98-107); Glucose 110 mg/dL (70-105); Magnesium 1.9 mg/dL (1.6-2.6); Osmolality,Calculated 284 (280-300); Potassium 3.9 mEq/L (3.5-5.1); Sodium 137 mEq/L (136-145); eGFR For African Americans > 60 (> 60); eGFR For Non-African Americans > 60 (> 60)
[2019-02-06 10:25] LABS: Thyroid Stimulating Hormone 1.343 mcIU/mL (0.340-5.600)
--- NOTE | 2019-02-06 14:09 | Internal Med Progress Note ---
Hospitalist Progress Note - Encounter Date of Encounter: 02/06/19 Time of Encounter: 08:15 - Subjective Interval History: Mr Thomas continues to complain of headaches, of note CT scan of his head 02/04 unremarkable for acute intracranial abnormality. Denies any visual disturbance. Per staff he refused his a.m. blood draw. Up date from [facility] positive blood cultures was staph aureus but not MRSA. Discharge planning was discussed with the patient regarding ECF for continued IV antibiotics given his active IV drug use he is reluctant but agreeable to ECF placement GEN: Denies fever, chills or malaise HEENT: reports headache denies blurriness, or dysphagia RESP: Denies SOB or cough CV: Denies chest pain or palpitations GI: Denies Nausea, vomiting, diarrhea or constipation Reviewed current in hospital medications with modifications see orders Reviewed Routine labs - Exam Vitals: Temp Pulse Resp BP Pulse Ox 98.0 F 104 16 129/77 98 02/06/19 11:10 02/06/19 11:10 02/06/19 11:10 02/06/19 11:10 02/06/19 11:10 Exam: GEN: NAD, A&O x 3, pleasant and conversant SKIN: [place] warm acyanotic not jaundice, multiple healing skin abrasion noted in his right upper extremity HEART: RRR with tachycardic, grade 2/6 systolic murmur appreciated LUNGS: Diminished but appears CTA no wheeze few crackles, overall non labored ABDOMEN; Soft, non tender or distended, BS x 4 normactive EXT: No LE edema, Pedal pulses 1+, radial pulses 2+ PSYCH: Mood and affect is appropriate - Assessment and Plan (1) Endocarditis Current Visit: Yes Status: Acute Assessment and Plan: 2 out of 2 blood cultures positive for staph aureus here and also confirmed at [facility], sensitivity reveals MSSA, was switched to rifampin and Cipro upon discharge for 6 weeks if ok with ID specialist since we do not anticipate patient being compliant with ECF placement for IV therapy. TTE tricuspid valve vegetation noted per discussion with the sailing officer we appreciate the input does not seem to indicate need for surgical intervention, appreciate ID specialist input appear to have been committed septic emboli to his lungs, he is complaining of worsening headache as such CT of the head negative for acute intracranial abnormality On vancomycin and Rocephin. Patient does endorse history of endocarditis a year ago treated at [facility] will obtain records (2) Sepsis Current Visit: Yes Status: Acute Assessment and Plan: Improvement, Secondary to endocarditis per information obtained from the outside hospital patient has gram-positive cocci see plan above for endocarditis (3) Headache Current Visit: Yes Status: Acute Assessment and Plan: Given septic emboli to the lungs concern about septic emboli to the brain CT head was ordered and was negative, is complaining of headache again today may consider MRI tomorrow. (4) Anemia Current Visit: Yes Status: Acute Assessment and Plan: Appears microcytic we will obtain studies hemoglobin 10.3, ferritin within normal limits fluids within normal limits however B12 is low supplement orally hemoglobin stable at 10, hemoglobin improved to 11 (5) Hypokalemia Current Visit: Yes Status: Acute Assessment and Plan: Resolved potassium 3.9 (6) Polysubstance abuse Current Visit: Yes Status: Acute Assessment and Plan: Reports IV drug use to heroin urine toxicology positive for amphenermines, this places patient at increased risk for outpatient treatment for his endocarditis with IV antibiotics will need placement to ECF. he is currently going through withdrawal will treat with oxycodone 5 mg every 6 so is most likely to stay to get treatment for his endocarditis rather than him leaving AMA which likely will increase overall health care cost burden (7) Cavitary lesion of lung Current Visit: Yes Status: Acute Assessment and Plan: in setting of septic emboli, we will need a repeat CT of the chest to rule out any other pulmonary malignancy in 6 months (8) Hyponatremia Current Visit: Yes Status: Acute Assessment and Plan: Resolved In the setting of sepsis may be related to SIADH acutely he is otherwise asymptomatic sodium is 131. Being septic cannot fluid restrict patient will monitor BMP tomorrow. Likely due to his poor intake he does not appear volume overload we will check TSH tomorrow for euvolemic hyponatremia DVT Prophylaxis: heparin sq - Time Spent with Patient Total time spent is greater than 50% in coordination of care (as documented) at patient's floor/unit and/or counseling patient: Internal Medicine: Result - Labs CBC & Chem 7: 02/06/19 09:25 02/06/19 09:25 Labs: Short CBC 02/06/19 Range/Units 09:25 WBC 12.7 H (4.3-11.1) K/mcL Hgb 11.0 L (12.9-16.9) g/dL Hct 35.7 L (37.5-50.1) % Plt Count 458 H (140-400) K/mcL Neutrophils # 9.6 H (1.6-8.9) K/mcL BMP 02/06/19 09:25 Sodium 137 Potassium 3.9 Chloride 101 Carbon Dioxide 27 BUN 12 Creatinine 0.65 L Glucose 110 H Calcium 9.0 - ABG Interpretation ABG results: PT/INR, D-dimer PT 15.7 Seconds (9.4-12.1) H 02/04/19 05:29 Consult Discharge Plan - Plan Referrals: NONE,PCP [Primary Care Provider] - (1) Endocarditis Qualifiers: Endocarditis type: infective Infective endocarditis organism: bacterial Chronicity: unspecified Qualified Code(s): I33.0 - Acute and subacute infective endocarditis (2) Sepsis Qualifiers: Sepsis type: sepsis due to unspecified organism Sepsis acute organ dysfunction status: with acute organ dysfunction Severe sepsis acute organ dysfunction type: unspecified Severe sepsis shock status: without septic shock Qualified Code(s): A41.9 - Sepsis, unspecified organism; R65.20 - Severe sepsis without septic shock (3) Headache Qualifiers: Headache type: unspecified Headache chronicity pattern: acute headache Qualified Code(s): R51 - Headache (4) Anemia Qualifiers: Anemia type: B12 deficiency Vitamin B12 deficiency anemia type: other B12 deficiency Qualified Code(s): D51.8 - Other vitamin B12 deficiency anemias
[2019-02-07 04:10] LABS: Basophils # 0.1 K/mcL (0.0-0.2); Basophils % 0.5 %; Eosinophils # 0.2 K/mcL (0.0-0.6); Eosinophils % 1.4 %; Hematocrit 37.6 % (37.5-50.1); Hemoglobin 11.3 g/dL (12.9-16.9); Mean Corpuscular HGB Conc 30.1 g/dL (31.6-35.5); Mean Corpuscular Hemoglobin 24.6 pg (28.0-33.3); Mean Corpuscular Volume 81.9 fL (83.0-100.0); Mean Platelet Volume 10.2 fL (9.4-12.4); Monocytes # 0.9 K/mcL (0.0-1.3); Monocytes % 6.7 %; Neutrophils # 9.9 K/mcL (1.6-8.9); Platelet Count 553 K/mcL (140-400); Red Blood Count 4.59 M/mcL (4.19-5.50); Red Cell Distribution Width 14.4 % (11.5-14.5); Segmented Neutrophils % 75.4 %; White Blood Count 13.1 K/mcL (4.3-11.1)
[2019-02-07 04:29] LABS: BUN/Creatinine Ratio 24 (6-26); Blood Urea Nitrogen 15 mg/dL (6-20); Calcium 9.1 mg/dL (8.6-10.3); Carbon Dioxide 24 mEq/L (23-29); Chloride 100 mEq/L (98-107); Glucose 106 mg/dL (70-105); Osmolality,Calculated 279 (280-300); Potassium 4.4 mEq/L (3.5-5.1); Sodium 134 mEq/L (136-145); eGFR For African Americans > 60 (> 60); eGFR For Non-African Americans > 60 (> 60)
[2019-02-07] MEDS: *HR* Heparin 5,000 UNIT/ML VIAL SQ SCH ×2 (05:37→16:59)
[2019-02-07] MEDS: cefTRIAXone 2,000 MG in 0.9 % Sodium Chloride Mini Bag 100 ML IVPB SCH (06:30)
[2019-02-07] MEDS: Cyanocobalamin (B-12) 1,000 MCG TABLET PO SCH (08:04)
[2019-02-07] MEDS ORDERED: Aminoglycoside Consult 1 EACH MC ONE (11:03)
--- NOTE | 2019-02-07 12:12 | Electrocardiograph Report ---
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
--- NOTE | 2019-02-07 12:23 | Infectious Disease Progress No ---
ID Progress Note Date of Encounter: 02/07/19 Time of Encounter: 12:23 - Subjective Subjective: Patient seen and examined. No acute events noted overnight. Patient states he feels better. Denies fevers, chills, or rigors. Reports reproducible right sided chest pain is improved. Continues to have a dry cough. Denies nausea, vomiting, or diarrhea. Denies abdominal pain or urinary complaints. Denies oral thrush or skin rashes. - Objective CBC & Chem 7: 02/08/19 05:43 02/08/19 05:43 - Exam Vitals: Temp Pulse Resp BP Pulse Ox 97.9 F 76 17 134/86 98 02/07/19 11:31 02/07/19 11:31 02/07/19 11:31 02/07/19 11:31 02/07/19 11:31 Exam: Head: Atraumatic, normal inspection, normocephalic. Eye: EOMI, PERRLA, no scleral icterus noted. No subconjunctival hemorrhage noted. ENT: Mucous membranes moist. No odontogenic infection noted. Neck: Normal inspection, no meningismus. Respiratory: Clear to auscultation. No rales, respiratory distress, rhonchi, or wheezes noted. Cardiovascular: Regular rate and rhythm, S1 and S2 audible. No murmurs, rubs, or gallops. GI: Soft, nondistended, normal bowel sounds. Nontender. Extremities:No joint swelling, pedal edema, or tenderness noted. Scabbed lesions noted to the right forearm without surrounding erythema, warmth, tenderness, or drainage. Back: Normal inspection. No vertebral tenderness noted. Neurological: Alert, oriented 3, no focal deficits. Psychiatric: normal affect, normal mood. Skin: Dry, intact, warm. Normal color. No rashes. No endocarditis stigmata noted. - Assessment and Plan (1) Sepsis Status: Acute The patient had 3 sepsis criteria with lactic acidosis on admission. Likely secondary to bacteremia and endocarditis. Improved. White blood cell count trending down. Tachycardia and lactic acidosis resolved. Afebrile overnight. Blood cultures drawn at outside hospital are +3/3 sets for MSSA. Repeat blood cultures drawn 02/04/19 are positive 2/2 sets. Repeat blood cultures drawn 02/07/19 are pending x 2 sets. Qualifiers: Sepsis type: sepsis due to unspecified organism Sepsis acute organ dysfunction status: with acute organ dysfunction Severe sepsis acute organ dysfunction type: unspecified Severe sepsis shock status: without septic shock Qualified Code(s): A41.9 - Sepsis, unspecified organism; R65.20 - Severe sepsis without septic shock SNOMED Code(s): 16305395 (2) Bacteremia Status: Acute Causative organism: MSSA. Blood cultures drawn at outside hospital are +3/3 sets for MSSA. Repeat blood cultures drawn 02/04/19 are positive 2/2 sets. Repeat blood cultures drawn 02/07/19 are pending x 2 sets. Source: IV drug use. 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 No endocarditis stigmata noted on exam. Transthoracic echocardiogram shows a oscillating mobile echodensity on the tricuspid valve. The patient has 2 major and two minor modified [place] criteria. Currently on vancomycin and Rocephin. SNOMED Code(s): 1582750 (3) Endocarditis Status: Acute Location: Tricuspid valve. Noted on the transthoracic echo. Blood cultures are positive, however, the patient does have a history of e ndocarditis so it is unclear if this is an old infection that is previously been treated for a new endocarditis. [place] records requested. No endocarditis stigmata noted on exam. Rheumatoid factor elevated at 22. Will likely treat for 4-6 weeks regardless since the patient has septic emboli. Currently on vancomycin and Rocephin. Qualifiers: Endocarditis type: infective Infective endocarditis organism: bacterial Chronicity: acute Qualified Code(s): I33.0 - Acute and subacute infective endocarditis SNOMED Code(s): 85236827 (4) Cavitary lesion of lung Status: Acute CT of the chest shows multiple pulmonary nodules likely related to septic emboli and a partly cavitated mass in the right upper lobe. Likely secondary to septic emboli. Currently on vancomycin and Rocephin. SNOMED Code(s): 826984079 (5) Hepatitis C Status: Acute Likely secondary to IV drug use. Outpatient GI referral. Qualifiers: Viral hepatitis chronicity: chronic Hepatic coma status: without hepatic coma Qualified Code(s): B18.2 - Chronic viral hepatitis C SNOMED Code(s): 56068188 (6) IVDU (intravenous drug user) Status: Acute Reports frequent use of IV heroin with last use 5 days ago. Known hepatitis C positive. HIV negative. Hepatitis B immune. Withdrawal management per the primary team. SNOMED Code(s): 340727391 - Recommendations Recommendations: Await repeat blood cultures to finalize. Withdrawal management and NRT per the primary team. Discontinue Vanc and Rocephin. Start cefazolin 2 grams IV Q8H. Duration of treatment is on the clinical picture, but likely 6 weeks. Monitor renal function for drug toxicity and is just antibiotics. hosted services analyst to assist with discharge planning. Avoid insertion of long-term IV access until repeat blood cultures are negative x 48 hours and discharge arrangements have been made. Consult Discharge Plan - Plan Referrals: NONE,PCP [Primary Care Provider] - - Attending Attestation I have personally performed a face to face evaluation on this patient. I have reviewed and agree with the care plan. History and Exam by me shows: Assessment and Plan: 1.Sepsis 2.Bacteremia 3.Endocarditis Tricuspid valve 4.history of endocarditis 1 year ago, treated fully with 6 weeks of IV antiibiotics. Patient does not recall which one 5.Cavitary lung lesions 6. Hepatitis C Recommendations: Discontinue Vanc and Rocephin. Start cefazolin 2 grams IV Q8H. Duration of treatment is on the clinical picture, but likely 6 weeks. monitor labs and for drug toxicity
--- NOTE | 2019-02-07 14:29 | Internal Med Progress Note ---
Hospitalist Progress Note - Encounter Date of Encounter: 02/07/19 Time of Encounter: 09:15 - Subjective Interval History: Mr mart report some minor improvement in his headaches. He is agreeable to ECF placement for continued IV antibiotics. Discussed with case management finding a bed for the patient has been challenging given his history. GEN: Denies fever, chills or malaise HEENT: Denies headache blurriness, or dysphagia RESP: Denies SOB or cough CV: Denies chest pain or palpitations GI: Denies Nausea, vomiting, diarrhea or constipation Reviewed current in hospital medications with modifications see orders Reviewed Routine labs - Exam Vitals: Temp Pulse Resp BP Pulse Ox 97.9 F 76 17 134/86 98 02/07/19 11:31 02/07/19 11:31 02/07/19 11:31 02/07/19 11:31 02/07/19 11:31 Exam: GEN: NAD, A&O x 3, pleasant and conversant SKIN: [place] warm acyanotic not jaundice, multiple healing skin abrasion noted in his right upper extremity HEART: RRR grade 2/6 systolic murmur appreciated LUNGS: CTA no wheeze few crackles, overall non labored ABDOMEN; Soft, non tender or distended, BS x 4 normactive EXT: No LE edema, Pedal pulses 1+, radial pulses 2+ PSYCH: Mood and affect is appropriate - Assessment and Plan (1) Endocarditis Current Visit: Yes Status: Acute Assessment and Plan: Repeat blood cultures today have been ordered, appears patient is agreeable to ECF for continued IV antibiotics if so we will need to discuss with infectious diseases team as far as the bicarbonate therapy since patient grew MSSA and place a PICC. Anticipate discharge in the next 48-72 hours pending placement 2 out of 2 blood cultures positive for staph aureus here and also confirmed at [facility], sensitivity reveals MSSA, was switched to rifampin and Cipro upon discharge for 6 weeks if ok with ID specialist since we do not anticipate patient being compliant with ECF placement for IV therapy. TTE tricuspid valve vegetation noted per discussion with the single wire saw operator we appreciate the input does not seem to indicate need for surgical intervention, appreciate ID specialist input appear to have been committed septic emboli to his lungs, he is complaining of worsening headache as such CT of the head negative for acute intracranial abnormality On vancomycin and Rocephin. Martha roach does endorse history of endocarditis a year ago treated at [facility] will obtain records (2) Sepsis Current Visit: Yes Status: Acute Assessment and Plan: Improvement, Secondary to endocarditis per information obtained from the outside hospital patient has gram-positive cocci see plan above for endocarditis (3) Headache Current Visit: Yes Status: Acute Assessment and Plan: Denies any headache today Given septic emboli to the lungs concern about septic emboli to the brain CT head was ordered and was negative, is complaining of headache again today may consider MRI tomorrow. (4) Anemia Current Visit: Yes Status: Acute Assessment and Plan: Appears microcytic we will obtain studies hemoglobin 10.3, ferritin within normal limits fluids within normal limits however B12 is low supplement orally h emoglobin stable at 10, hemoglobin improved to 11- 11.3 today (5) Hypokalemia Current Visit: Yes Status: Acute Assessment and Plan: Resolved potassium 3.9 (6) Polysubstance abuse Current Visit: Yes Status: Acute Assessment and Plan: Reports IV drug use to heroin urine toxicology positive for amphenermines, this places patient at increased risk for outpatient treatment for his endocarditis with IV antibiotics will need placement to ECF. he is currently going through withdrawal will treat with oxycodone 5 mg every 6 so is most likely to stay to get treatment for his endocarditis rather than him leaving AMA which likely will increase overall health care cost burden (7) Cavitary lesion of lung Current Visit: Yes Status: Acute Assessment and Plan: in setting of septic emboli, we will need a repeat CT of the chest to rule out any other pulmonary malignancy in 6 months (8) Hyponatremia Current Visit: Yes Status: Acute Assessment and Plan: Resolved In the setting of sepsis may be related to SIADH acutely he is otherwise asymptomatic sodium is 131. Being septic cannot fluid restrict patient will monitor BMP tomorrow. Likely due to his poor intake he does not appear volume overload we will check TSH tomorrow for euvolemic hyponatremia - Time Spent with Patient Total time spent is greater than 50% in coordination of care (as documented) at patient's floor/unit and/or counseling patient: Internal Medicine: Result - Labs CBC & Chem 7: 02/07/19 03:24 02/07/19 03:24 Labs: Short CBC 02/07/19 Range/Units 03:24 WBC 13.1 H (4.3-11.1) K/mcL Hgb 11.3 L (12.9-16.9) g/dL Hct 37.6 (37.5-50.1) % Plt Count 553 H (140-400) K/mcL Neutrophils # 9.9 H (1.6-8.9) K/mcL BMP 02/07/19 03:24 Sodium 134 L Potassium 4.4 Chloride 100 Carbon Dioxide 24 BUN 15 Creatinine 0.63 L Glucose 106 H Calcium 9.1 - ABG Interpretation ABG results: PT/INR, D-dimer PT 15.7 Seconds (9.4-12.1) H 02/04/19 05:29 Consult Discharge Plan - Plan Referrals: NONE,PCP [Primary Care Provider] - (1) Endocarditis Qualifiers: Endocarditis type: infective Infective endocarditis organism: bacterial Ch ronicity: unspecified Qualified Code(s): I33.0 - Acute and subacute infective endocarditis (2) Sepsis Qualifiers: Sepsis type: sepsis due to unspecified organism Sepsis acute organ dysfunction status: with acute organ dysfunction Severe sepsis acute organ dysfunction type: unspecified Severe sepsis shock status: without septic shock Qualified Code(s): A41.9 - Sepsis, unspecified organism; R65.20 - Severe sepsis without septic shock (3) Headache Qualifiers: Headache type: unspecified Headache chronicity pattern: acute headache Qualified Code(s): R51 - Headache (4) Anemia Qualifiers: Anemia type: B12 deficiency Vitamin B12 deficiency anemia type: other B12 deficiency Qualified Code(s): D51.8 - Other vitamin B12 deficiency anemias
[2019-02-07] MEDS: ceFAZolin 2,000 MG in 0.9 % Sodium Chloride 100 ML IVPB SCH ×2 (16:59→23:09)
[2019-02-08] MEDS: *HR* Heparin 5,000 UNIT/ML VIAL SQ SCH (05:20)
[2019-02-08 06:10] LABS: Basophils # 0.1 K/mcL (0.0-0.2); Basophils % 0.7 %; Eosinophils # 0.2 K/mcL (0.0-0.6); Eosinophils % 2.2 %; Hemoglobin 11.9 g/dL (12.9-16.9); Immature Granulocytes % 1.9 % (0-4); Lymphocytes # 1.7 K/mcL (0.6-4.6); Lymphocytes % 17.5 %; Mean Corpuscular HGB Conc 30.5 g/dL (31.6-35.5); Mean Corpuscular Hemoglobin 24.7 pg (28.0-33.3); Mean Corpuscular Volume 81.1 fL (83.0-100.0); Mean Platelet Volume 9.6 fL (9.4-12.4); Monocytes # 0.7 K/mcL (0.0-1.3); Monocytes % 7.1 %; Neutrophils # 6.7 K/mcL (1.6-8.9); Platelet Count 544 K/mcL (140-400); Red Blood Count 4.81 M/mcL (4.19-5.50); Red Cell Distribution Width 14.4 % (11.5-14.5); Segmented Neutrophils % 70.6 %; White Blood Count 9.4 K/mcL (4.3-11.1)
[2019-02-08 06:28] LABS: Blood Urea Nitrogen 12 mg/dL (6-20); Carbon Dioxide 25 mEq/L (23-29); Chloride 101 mEq/L (98-107); Potassium 4.2 mEq/L (3.5-5.1); Sodium 138 mEq/L (136-145)
[2019-02-08 06:29] LABS: BUN/Creatinine Ratio 19 (6-26); Calcium 9.4 mg/dL (8.6-10.3); Glucose 115 mg/dL (70-105); Magnesium 2.2 mg/dL (1.6-2.6); Osmolality,Calculated 287 (280-300); eGFR For African Americans > 60 (> 60); eGFR For Non-African Americans > 60 (> 60)
[2019-02-08 07:56] VITALS: BP 115/72
[2019-02-08] MEDS: Cyanocobalamin (B-12) 1,000 MCG TABLET PO SCH (07:59)
[2019-02-08] MEDS: ceFAZolin 2,000 MG in 0.9 % Sodium Chloride 100 ML IVPB SCH (07:59)
--- NOTE | 2019-02-08 10:26 | Infectious Disease Progress No ---
ID Progress Note Date of Encounter: 02/08/19 Time of Encounter: 10:24 - Subjective Subjective: Patient seen and examined. No acute events noted overnight. Patient states he feels better. Denies fevers, chills, or rigors. Reports reproducible right sided chest pain is improved. Continues to have a dry cough. Denies nausea, vomiting, or diarrhea. Denies abdominal pain or urinary complaints. Denies oral thrush or skin rashes. States headache is improved. Denies blurred vision. - Objective CBC & Chem 7: 02/08/19 05:43 02/08/19 05:43 - Exam Vitals: Temp Pulse Resp BP Pulse Ox 98.4 F 74 16 115/72 99 02/08/19 07:54 02/08/19 07:54 02/08/19 07:54 02/08/19 07:54 02/08/19 07:54 Exam: Head: Atraumatic, normal inspection, normocephalic. Eye: EOMI, PERRLA, no scleral icterus noted. No subconjunctival hemorrhage noted. ENT: Mucous membranes moist. No odontogenic infection noted. Neck: Normal inspection, no meningismus. Respiratory: Clear to auscultation. No rales, respiratory distress, rhonchi, or wheezes noted. Cardiovascular: Regular rate and rhythm, S1 and S2 audible. No murmurs, rubs, or gallops. GI: Soft, nondistended, normal bowel sounds. Nontender. Extremities:No joint swelling, pedal edema, or tenderness noted. Scabbed lesio ns noted to the right forearm without surrounding erythema, warmth, tenderness, or drainage. Back: Normal inspection. No vertebral tenderness noted. Neurological: Alert, oriented 3, no focal deficits. Psychiatric: normal affect, normal mood. Skin: Dry, intact, warm. Normal color. No rashes. No endocarditis stigmata noted. - Assessment and Plan (1) Sepsis Status: Acute The patient had 3 sepsis criteria with lactic acidosis on admission. Likely secondary to bacteremia and endocarditis. Improved. White blood cell count trending down. Tachycardia and lactic acidosis resolved. Afebrile overnight. Blood cultures drawn at outside hospital are +3/3 sets for MSSA. Repeat blood cultures drawn 02/04/19 are positive 2/2 sets. Repeat blood cultures drawn 02/07/19 are pending x 2 sets. Qualifiers: Sepsis type: sepsis due to unspecified organism Sepsis acute organ dysfunction status: with acute organ dysfunction Severe sepsis acute organ dysfunction type: unspecified Severe sepsis shock status: without septic shock Qualified Code(s): A41.9 - Sepsis, unspecified organism; R65.20 - Severe sepsis without septic shock SNOMED Code(s): 12585775 (2) Bacteremia Status: Acute Causative organism: MSSA. Blood cultures drawn at outside hospital are +3/3 sets for MSSA. Repeat blood cultures drawn 02/04/19 are positive 2/2 sets. Repeat blood cultures drawn 02/07/19 are pending x 2 sets. Source: IV drug use. 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 No endocarditis stigmata noted on exam. Rheumatoid factor elevated. Transthoracic echocardiogram shows a oscillating mobile echodensity on the tricuspid valve. The patient has 2 major and two minor modified Oxford criteria. Currently on cefazolin. SNOMED Code(s): 9301960 (3) Endocarditis Status: Acute Location: Tricuspid valve. Noted on the transthoracic echo. Blood cultures are positive, however, the patient does have a history of endocarditis so it is unclear if this is an old infection that is previously been treated for a new endocarditis. [place] records requested. No endocarditis stigmata noted on exam. Rheumatoid factor elevated at 22. Will likely treat for 4-6 weeks regardless since the patient has septic emboli. Currently on cefazolin. Qualifiers: Endocarditis type: infective Infective endocarditis organism: bacterial Chronicity: acute Qualified Code(s): I33.0 - Acute and subacute infective endocarditis SNOMED Code(s): 45203321 (4) Cavitary lesion of lung Status: Acute CT of the chest shows multiple pulmonary nodules likely related to septic emboli and a partly cavitated mass in the right upper lobe. Likely secondary to septic emboli. Currently on cefazolin. SNOMED Code(s): 248269373 (5) Hepatitis C Status: Acute Likely secondary to IV drug use. Outpatient GI referral. Qualifiers: Viral hepatitis chronicity: chronic Hepatic coma status: without hepatic coma Qualified Code(s): B18.2 - Chronic viral hepatitis C SNOMED Code(s): 57980753 (6) IVDU (intravenous drug user) Status: Acute Reports frequent use of IV heroin with last use 5 days ago. Known hepatitis C positive. HIV negative. Hepatitis B immune. Withdrawal management per the primary team. SNOMED Code(s): 655780377 - Recommendations Recommendations: Await repeat blood cultures to finalize. Withdrawal management and NRT per the primary team. Continue cefazolin 2 grams IV Q8H. Duration of treatment is on the clinical picture, but likely 6 weeks. Monitor renal function for drug toxicity and is just antibiotics. family services specialist to assist with discharge planning. Avoid insertion of long-term IV access until repeat blood cultures are negative x 48 hours and discharge arrangements have been made. Consult Discharge Plan - Plan Referrals: NONE,PCP [Primary Care Provider] - - Attending Attestation I have personally performed a face to face evaluation on this patient. I have reviewed and agree with the care plan. History and Exam by me shows: Assessment and Plan: 1.Sepsis 2.Bacteremia 3.Endocarditis Tricuspid valve 4.history of endocarditis 1 year ago, treated fully with 6 weeks of IV antiibiotics. Patient does not recall which one 5.Cavitary lung lesions 6. Hepatitis C Recommendations: Await repeat blood cultures to finalize. Withdrawal management and NRT per the primary team. Continue cefazolin 2 grams IV Q8H. Duration of treatment is on the clinical picture, but likely 6 weeks. Monitor renal function for drug toxicity and is just antibiotics. family services specialist to assist with discharge planning. Avoid insertion of long-term IV access until repeat blood cultures are negative x 48 hours and discharge arrangements have been made.
--- NOTE | 2019-02-08 15:27 | Discharge Summary ---
- NOTES TO OUTPATIENT PROVIDER Notes to Outpatient Provider: Hospitalized for sepsis and endocarditis MSSA bacteremia. Patient left AGAINST MEDICAL ADVICE Orders not resulted at time of discharge: Pending orders 02/07/19 08:19 Culture,Blood [BC] Stat Date of Encounter: 02/08/19 Time of Encounter: 09:30 - Discharge Diagnosis (1) Endocarditis Priority: Primary Status: Acute Assessment and Plan: Patient left AGAINST MEDICAL ADVICE today despite several days of education about his critical illness and treatment plan. He does not want to go to ECF for IV antibiotics Repeat blood cultures today have been ordered, appears patient is agreeable to ECF for continued IV antibiotics if so we will need to discuss with infectious diseases team as far as the bicarbonate therapy since patient grew MSSA and place a PICC. Anticipate discharge in the next 48-72 hours pending placement 2 out of 2 blood cultures positive for staph aureus here and also confirmed at [facility], sensitivity reveals MSSA, was switched to rifampin and Cipro upon discharge for 6 weeks if ok with ID specialist since we do not anticipate patient being compliant with ECF placement for IV therapy. TTE tricuspid valve vegetation noted per discussion with the manager scientific we appreciate the input does not seem to indicate need for surgical intervention, appreciate ID specialist input appear to have been committed septic emboli to his lungs, he is complaining of worsening headache as such CT of the head negative for acute intracranial abnormality On vancomycin and Rocephin. Patient does endorse history of endocarditis a year ago treated at [facility] will obtain records Qualifiers: Endocarditis type: infective Infective endocarditis organism: bacterial Chronicity: unspecified Qualified Code(s): I33.0 - Acute and subacute infective endocarditis (2) Sepsis Priority: Primary Status: Acute Assessment and Plan: Patient left AGAINST MEDICAL ADVICE today despite several days of education about his critical illness and treatment plan. He does not want to go to ECF for IV antibiotics Improvement, Secondary to endocarditis per information obtained from the outside hospital patient has gram-positive cocci see plan above for endocarditis Qualifiers: Sepsis type: sepsis due to unspecified organism Sepsis acute organ dysfunction status: with acute organ dysfunction Severe sepsis acute organ dysfunction type: unspecified Severe sepsis shock status: without septic shock Qualified Code(s): A41.9 - Sepsis, unspecified organism; R65.20 - Severe sepsis without septic shock (3) Headache Priority: Secondary Status: Acute Assessment and Plan: Denies any headache today Given septic emboli to the lungs concern about septic emboli to the brain CT head was ordered and was negative, is complaining of headache again today may consider MRI tomorrow. Qualifiers: Headache type: unspecified Headache chronicity pattern: acute headache Qualified Code(s): R51 - Headache (4) Anemia Priority: Secondary Status: Acute Assessment and Plan: Appears microcytic we will obtain studies hemoglobin 10.3, ferritin within normal limits fluids within normal limits however B12 is low supplement orally hemoglobin stable at 10, hemoglobin improved to 11- 11.3-11.9 today Qualifiers: Anemia type: B12 deficiency Vitamin B12 deficiency anemia type: other B12 deficiency Qualified Code(s): D51.8 - Other vitamin B12 deficiency anemias (5) Hypokalemia Priority: Secondary Status: Acute Assessment and Plan: Resolved potassium 3.9 (6) Polysubstance abuse Priority: Secondary Status: Acute Assessment and Plan: Reports IV drug use to heroin urine toxicology positive for amphenermines, this places patient at increased risk for outpatient treatment for his endocarditis with IV antibiotics will need placement to ECF. he is currently going through withdrawal will treat with oxycodone 5 mg every 6 so is most likely to stay to get treatment for his endocarditis rather than him leaving AMA which likely will increase overall health care cost burden (7) Cavitary lesion of lung Priority: Secondary Status: Acute Assessment and Plan: in setting of septic emboli, we will need a repeat CT of the chest to rule out any other pulmonary malignancy in 6 months (8) Hyponatremia Priority: Secondary Status: Acute Assessment and Plan: Resolved In the setting of sepsis may be related to SIADH acutely he is otherwise asymptomatic sodium is 131. Being septic cannot fluid restrict patient will monitor BMP tomorrow. Likely due to his poor intake he does not appear volume overload we will check TSH tomorrow for euvolemic hyponatremia, 138 today Hospital course: Mr. 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 Patient was being planned for discharge to ECF for continued IV antibiotics given his IV drug use however he decided to leave AMA today despite several days of education and encouragement to adhere to the treatment plan. - Time Spent with Patient Total time spent providing and/or coordinating discharge services: - Discharge Medications Prescriptions: No Action No Known Home Drugs 1 each .ROUTE AD each Home Medications: No Known Home Drugs 02/04/19 [History] Allergies/Adverse Reactions: Allergy/AdvReac Type Severity Reaction Status Date / Time No Known Allergies Allergy Verified 02/04/19 08:58 Date of admission: 02/04/19 04:52 Primary care physician: PCP NONE Consults: 02/04/19 10:33 Consult to Infectious Diseases [CONS] Routine Consulting Provider: Infectious Disease Emiliana Reason for Consult: TR endocarditis, positive blood cultures from outside hosp gm+ cocci, Hx IVDU Time Notified: 10:34 Call Completed: Yes Discharging clinician: Mak Solis - Constitutional Vitals: Temp Pulse Resp BP Pulse Ox 98.4 F 74 16 115/72 99 02/08/19 07:54 02/08/19 07:54 02/08/19 07:54 02/08/19 07:54 02/08/19 07:54 Exam: GEN: NAD, A&O x 3, Pleasant and conversant, all dressed in street clothes SKIN: [place] warm acyanotic not jaundice HEART: RRR, grade 2/6 systolic murmur appreciated LUNGS: CTA no wheeze or crackles, overall non labored ABDOMEN; Soft, non tender or distended, BS x 4 normactive EXT: No LE edema, Pedal pulses 1+, radial pulses 2+ PSYCH: Mood and affect is appropriate - Patient Status Disposition: Left Against Medical Advice - Discharge Instructions Follow Up With: NONE,PCP [Primary Care Provider] -
== END 2019-02-08 11:04 | disposition left against medical advice (07) | DRG 720 ==
LOC: 2ANU → OBSVTOIN 04:52 → SUATTDRO 04:52
PROVIDERS: ADMIT Internal Medicine; ATTEND Pharmacist